=== PATIENT | female | born 1955 | race Caucasian/White ===

== ENCOUNTER 2024-03-18 13:04 | Outpatient (AMB) | payer OTHER, MEDICAID, SELFPAY ==
[2024-03-18 13:16] VITALS: BP 134/85; PULSE 69; RESP 18; TEMP 36.4; O2SAT 98; BMI 33.3
--- NOTE | 2024-03-18 13:16 | PD.ORTHCLVIS ---
Vital signs 03/18/24 13:16 Height 1.55 m Height Method Stated Weight 79.946 kg Weight Measurement Method Standing Scale BMI 33.3 BP 134/85 H Blood Pressure Source Automatic Cuff Blood Pressure Location Right Upper Arm Position Sitting Respiration 18 Pulse 69 Pulse Source Monitor Temp 97.5 F Temp Source Temporal Artery Scan Pulse Oximetry (%) 98 Oxygen Delivery Method Room Air Med/Allergies Allergies & Medications Allergies No Known Allergies Allergy (Verified 03/18/24 13:20) Medication Reconciliation Unobtainable 02/27/23 [History Confirmed 03/18/24] Subjective Visit Visit for: follow up visit Immunization / Flu Flu Vaccine in the Last 12 Months: No Flu Vaccine Exclusion Criteria: No Exclusion Criteria History of Present Illness Chief complaint: 3 MONTH F/U ON INJECTION Patient is a pleasant 60-year-old female with a longstanding history of left knee pain. She also had a right total knee replacement complicated by stiffness. It actually improved with the back surgery. Her left knee pain is miserable adn she has failed conservative treatment. She has had multiple injections, andiinflammatories, and physical therapy. Personal History Occupation: RETIRED Red flag PMH: none Pain Pain level (0-10): 0 Pain duration: CONSTANT Pain location: other (specify) (LEFT KNEE ) Pain quality: sharp and aching Pain timing: increases with activity and stairs Associated signs & symptoms: none Ambulatory data Ambulatory device: cane Treatments Improvement with previous injections: No Number of Physical Therapy sessions: 6 Improvement with PT: No Improvement with NSAIDS: n/a Review of Systems Review of Systems: All systems negative unless otherwise noted in HPI. Exam Exam Patient is in no acute distress and is cooperative with the examination today. Patient has a normal mood and affect. Breathing is nonlabored. In no respiratory distress. Bilateral extremities were evaluated and demonstrates sensation intact to light touch. Palpable pedal pulses are present. No significant edema is present. Right knee incision is clean dry intact Range of motion is 5 to 95 degrees left knee is tender to palpation to medially. ROM is 0-100. Knee feels stable to varus and valgus stress and AP translation MRI of her lumbar spine was reviewed by me today as well as x-rays of her hip and spine. The hips demonstrate preserved joint spaces. The spine demonstrates significant spinal stenosis at L4-5 Lerft knee demonstrates significant joint space narrowing . She has significant varus demfority and complete obliteration of the joint space. Left knee demonstrates full thickness cartilage and osteophytes Assessment and Plan Problem List (1) Stiffness of right knee: Status: Acute Plan: Patient is a 67-year-old female with stiffness of her right knee. Her right knee range of motion has significantly improved since her back surgery. She has significant left knee arthritis is affecting her quality life and happiness. She has failed conservative We will plan on doing the surgery when she is ready. (2) Lumbar stenosis: Status: Acute Advanced Care Planning Discussion Advance care planning discussed with:: patient Office Procedures GNS Level of Care Nursing/Assessment Patient Status: Established Patient Nursing Assessment/Reassesment: Medication Reconciliation, Update PMH in EMR and Vital Signs Coordination of Care: Complex Care and Chronic Disease 1-5, Education Complex Pt/Fam, Consent,records obtained, informed consent, 1 Ins Authorization, Lab and Imaging orders, Results/Orders obtained and Staff clarify orders Established Patient Charge Established Patient Point Assignment: 125 Established Patient Point Charge: EP Level 4 (120-155) Past Medical History Past Medical History Have you ever been diagnosed with any of the following: Cardiology Problems Hypertension: Yes Respiratory Problems Smoking: No Smoking Exposure: No
== END 2024-03-18 13:26 | disposition home or self-care (01) ==
LOC: HODSRG 13:04
PROVIDERS: Supervising Provider Orthopaedic Surgery Adult Reconstructive Orthopaedic Surgery; Visit Provider Orthopaedic Surgery Adult Reconstructive Orthopaedic Surgery
DX: M25.661 Stiffness of right knee, not elsewhere classified (principal); M48.061 Spinal stenosis, lumbar region without neurogenic claudication; I10 Essential (primary) hypertension
CPT/HCPCS: 99214; G0463

== ENCOUNTER 2024-04-09 05:40 | Day surgery (SDC) | payer OTHER, MEDICAID, SELFPAY ==
[2024-04-08 07:22] VITALS: BMI 32.5
[2024-04-08 09:01] LABS: Alanine Aminotransferase 13 U/L (10-49); Albumin, Serum 4.7 gm/dL (3.4-4.8); Alkaline Phosphatase 113 U/L (46-116); Anion Gap 9 (7-16); Aspartate Amino Transferase 15 U/L (0-34); BUN/Creatinine Ratio 30 Ratio (12-20); Bilirubin,Total 0.4 mg/dL (0.3-1.2); Blood Urea Nitrogen 21 mg/dL (9-23); Calcium 9.8 mg/dL (8.3-10.6); Calcium (Corrected) 9.8 mg/dL (8.5-10.1); Carbon Dioxide 28.5 mMol/L (20.0-31.0); Chloride 105 mMol/L (98-107); Creatinine (Component) 0.7 mg/dL (0.6-1.3); Estimated Creatinine Clearance 72.4 mL/min (>60); Globulin 2.4 gm/dL (2.3-3.5); Glucose 105 mg/dL (74-106); Osmolality,Calculated 286 (275-295); Potassium 3.8 mMol/L (3.4-5.1); Sodium 142 mMol/L (136-145); Total Protein 7.1 gm/dL (5.7-8.2); eGFR > 60 See Note
[2024-04-08 09:05] LABS: Basophils # (Auto) 0.1 Thou/mm3 (0.0-0.2); Basophils % (Auto) 1 % (0-2.5); Eosinophils # (Auto) 0.3 Thou/mm3 (0.0-0.5); Eosinophils % (Auto) 3 % (0-10); Hematocrit 37.6 % (36.0-46.0); Immature Granulocytes % (Auto) 0 % (0-0); Immature Granulocytes Auto 0.02 Thou/mm3 (0.00-0.00); Lymphocytes % (Auto) 23 % (10-50); Mean Corpuscular HGB Conc 31.9 g/dl (31.0-37.0); Mean Corpuscular Hemoglobin 29.5 pg (25.0-35.0); Mean Corpuscular Volume 92 fL (80-100); Monocytes # (Auto) 0.6 Thou/mm3 (0.0-0.8); Monocytes % (Auto) 7 % (0-12); Neutrophils # (Auto) 5.8 Thou/mm3 (1.8-7.7); Neutrophils % (Auto) 66 % (37-80); Nucleated Red Blood Cell % 0 /100 WBC (0); Platelet Count 268 Thou/mm3 (140-440); RDW Standard Deviation 45.6 fL (36.4-46.3); Red Blood Count 4.07 Miln/mm3 (4.00-5.20); White Blood Count 8.8 Thou/mm3 (3.6-11.0)
[2024-04-08 09:06] LABS: Partial Thromboplastin Time 25.4 Seconds (22.0-36.0); Prothrombin Time 10.7 Seconds (9.0-12.2)
[2024-04-09] VITALS (17 sets, daily range): BP systolic 101–170; BP diastolic 43–99; PULSE 50–78; RESP 13–22; TEMP 36.1–36.7; O2SAT 93–100; BMI 33.2; BMI 13.0
[2024-04-09] MEDS: ACETAMINOPHEN 325 MG TABLET 650 MG PO (06:37)
[2024-04-09] MEDS: PREGABALIN 75 MG CAPSULE PO (06:37)
[2024-04-09] MEDS: MELOXICAM 7.5 MG TABLET PO (06:38)
[2024-04-09] MEDS: RINGERS LACTATED 1000 ML 1,000 ML 20 ML IV (06:40)
--- NOTE | 2024-04-09 09:50 | SUR.PHASEI ---
pt received from OR in recovery bay 5. pt asleep but responds to voice, breathing unlabored on 4l nc. v/s stable. pt dressing to left lower extremity cdi. report received from Dr. Hernandez and Jocy VALLADARES.
--- NOTE | 2024-04-09 09:58 | XR_ITS ---
Examination: Left knee 2 views Technique one AP lateral left knee 2 views Exam date and time: April 09, 2024 1112 hours INDICATIONS: Postop knee arthroplasty today. FINDINGS: Prominent osteopenia Total left knee arthroplasty. Satisfactory alignment No fracture IMPRESSION: Total left knee arthroplasty with satisfactory alignment
--- NOTE | 2024-04-09 10:03 | PD.SUROPNT ---
Date of Procedure 04/09/24 Pre Op Diagnosis left knee osteoarthritis Post Op Diagnosis left knee osteoarthritis Procedure left total knee replacement Findings full thickness cartilage loss and osteophytes Procedure Description Indication: The patient is a 69 year old who has a long history of left knee pain. X-rays show degenerative arthritis involving the knee. Over the past several years the patient has had increasing pain, progressive limitation in function. He has failed conservative measures including activity modification, physical therapy, injections, anti-inflammatories, and assistive devices. After a lengthy discussion of the risks and benefits, the patient presents now for total knee replacement. The nature and purpose of the total knee replacement, alternative method(s) of treatment, the material risks involved, and the possibility of complications were fully explained to the patient. The patient was told the most common risks and complications associated with a total knee replacement include, but are not limited to blood clots in the leg, fatal pulmonary embolism, dislocation of the prosthesis, intraoperative and postoperative fractures of the femur or tibia, infection, failure of the prosthesis or grafting materials, complications from anesthesia, reactions to blood transfusions, postoperative leg length inequality, instability of the knee replacement, nerve damage or injury, vascular injury, delayed wound healing, infections, other injury or even . In addition, there are risks associated with anesthesia given during this operation, temporary or permanent numbness on the skin lateral to the incision can be a complication unique to total knee surgery, and kneeling can be painful after knee replacement surgery. Also, the patient was told that after undergoing a total knee replacement there may still be pain or disability. We discussed with the patient that we will be using a robot-assisted technology. We discussed that there is a possibility of converting to manual instrumentation. The patient was informed that the success of this operation in part depends upon the mechanical devices which are going to be implanted and that these devices can fail or malfunction, and may need to be repaired or replaced and there are no guarantees as to the longevity of this device or its part and that it or its parts could fail prematurely. Finally, the patient was asked to follow completely and fully with all advice and recommended treatments, and that recovery and ultimate outcome are affected by their compliance with recommended treatment. Surgical technique: Patient was marked and consented in the pre-operative area. The patient was brought to the operating room and placed on the operating table in a supine position. Prior to positioning, a timeout procedure was performed between the surgeon, the anesthesiologist, and the nursing staff where the patient and the operative side were identified and confirmed. After adequate general anesthetic was obtained, the left lower extremity was prepped and draped in the usual sterile fashion. A weight based dose of Cefazolin were administered within 1 hour prior to incision. The robot was preregistered and calirated before the incision. The extremity was exsanguinated with an esmarch badge and tourniquet inflated to 250mmHg. A midline incision was made. A median parapatellar arthrotomy was made. The patella was subluxed laterally. A medial release was performed to expose the medial tibia. His femoral and tibial pins were placed through an intra incisional manner for both cases. Every effort was made to ensure that the distalmost aspect of the pin was hung in the second cortex. The arrays were then tightened several times to ensure that it was fixed for the remainder of the case. Both femoral and tibial checkpoints were then placed. We then went through the registration process of the bone. We then assessed the knee deformity and attempted to correct it. We also used the robot to aid in judging laxity in both extension and flexion. Final based on laxity and alignment we changed the preoperative assessment to obtain proper proper implant positioning and to correct deformity. Attention was then placed to the tibia. We made a tibial cut using the robot ensuring that both the MCL and the patella tendon were protected with retractors. We then went to the femur and made the posterior cut followed by the anterior cut and the anterior chamfer. The bone was then removed and we made a distal femur cut and a posterior chamfer cut. We verified all cuts. A trial reduction was performed with a size 1 femoral component and a size 1 keeled tibial component. The patella tracked centrally, and no lateral retinacular release was necessary. The trial implants were removed. The arrays, pins, and checkpoints were all removed. We performed a verification that all pins were removed. The cut bone surfaces were lavaged. A size 1 left femoral component, a size 1 keeled tibial component were impacted into position. The knee was felt to be well balanced in the sagittal and coronal plane. The final 1x10 mm cruciate-substituting articular insert was impacted into the tibial tray. The knee was brought out to full extension, flexed up to 120 degrees. It was stable to varus and valgus stress and appropriately balanced in flexion and extension. The wounds were copiously irrigated following deflation of tourniquet. The medial retinaculum was reapproximated with #1 vicryl and quill. The subcutaneous tissues were closed with 0 and 2-0 interrupted Vicryl. The skin was closed with 3-0 Monofilament V loc suture. A sterile dressing was applied. The patient was transferred to a bed and brought to recovery in stable condition. The patient tolerated the procedure well. There were no intraoperative complications. Sponge and needle counts were correct times 2. As the attending surgeon, Nestor morejon I was present and performed the entire operation. Grafts/Implants Size 1 CR Femur Size 1 Tibia 10mm poly CS Implants GTRAN Pathology / specimen None Pathology comment: none Estimated Blood Loss 150 Disposition same day Surgeon Rio Marino MD Surgical Staff Operation Date: 04/09/24 07:30 Case Staff Anesthesiologist: Vitaliy Hernandez RNmortgage loan officer originator: Luz Conway
--- NOTE | 2024-04-09 11:57 | SUR.PHASEII ---
1157: Received report from Chan VALLADARES, pt. AAOx4, vitals stable, breathing unlabored, no complaint of pain or nausea, dressing to left leg CDI, no active bleed noted, palpable dorsalis pedis pulses bilaterally strong and regular, cap refill to bilateral feet less than 3 seconds.
--- NOTE | 2024-04-09 12:27 | SUR.PHASEII ---
1227: Report given to Chan VALLADARES to resume care of pt. Pt. AAOx4, dressing to left knee CDI, pt. sitting at bedside with physical therapy getting ready to walk with assist.
--- NOTE | 2024-04-09 12:32 | SUR.PHASEII ---
pt able to tolerate jello without difficulty swallowing or nausea/vomiting.
--- NOTE | 2024-04-09 15:50 | SUR.PHASEII ---
pt awake and alert, breathing unlabored on room air. v/s stable. pt dressing to left lower extremity cdi. pt cleared by physical therapist Paulina. pt able to ambulate to wheelchair with steady gait. d/c instructions given with ana Dyson in room, all questions answered. pt d/c via wheelchair with all belongings.
--- NOTE | 2024-04-11 18:31 | PD.ANESPROG ---
Documentation for date of: 04/11/24 POST ANESTHESIA NOTE: Patient had GETA and L adductor canal block for L TKA on 04/09/24. I just called her number for follow up but no answer. Vitaliy Hernandez MD Anesthesia Progress Note Progress Note Most recent Vital Signs: Last Vital Signs Temp 97.2 F 04/09/24 15:30 Pulse 73 04/09/24 15:30 Resp 20 04/09/24 15:30 BP 135/61 H 04/09/24 15:30 Pulse Ox 100 04/09/24 15:30 O2 Flow Rate 2 04/09/24 13:30
== END 2024-04-09 15:50 | disposition home health service (06) ==
PROVIDERS: Anesthesiology; PCP Family Medicine; Referring Provider Orthopaedic Surgery Adult Reconstructive Orthopaedic Surgery; Visit Provider Orthopaedic Surgery Adult Reconstructive Orthopaedic Surgery
PROC: (CPT 27447; principal; 2024-04-09 07:30)
DX: M17.12 Unilateral primary osteoarthritis, left knee (principal); M25.762 Osteophyte, left knee
CPT/HCPCS: 27447; 20985; 36415; 73560; 80053; 85025; 85610; 85730; 97162; A4217; C1713; C1776; J0171; J0690; J1100; J1885; J2250; J2371; J2405; J2704; J2710; J2795; J3010; J3490; J7030; J7120; P9045; A4648; A4649; A9270; J1596; J1805

== ENCOUNTER 2024-04-25 13:44 | Outpatient (AMB) | payer OTHER, MEDICAID, SELFPAY ==
[2024-04-25 14:01] VITALS: BP 145/77; PULSE 68; RESP 18; TEMP 36.1; O2SAT 97; BMI 33.6
--- NOTE | 2024-04-25 14:01 | RHCORTHONT_ITS ---
Vital signs 04/25/24 14:01 Height 1.55 m Height Method Stated Weight 80.796 kg Weight Measurement Method Standing Scale BMI 33.6 BP 145/77 H Blood Pressure Source Automatic Cuff Blood Pressure Location Right Upper Arm Position Sitting Respiration 18 Pulse 68 Pulse Source Monitor Temp 96.9 F Temp Source Temporal Artery Scan Pulse Oximetry (%) 97 Oxygen Delivery Method Room Air Med/Allergies Allergies & Medications Allergies No Known Allergies Allergy (Verified 04/08/24 07:20) Exam Exam Patient is in no acute distress and is cooperative with the examination today. Patient has a normal mood and affect. Breathing is nonlabored. In no respiratory distress. Bilateral extremities were evaluated and demonstrates sensation intact to light touch. Palpable pedal pulses are present. No significant edema is present. Left knee incision is clean dry and intact Assessment and Plan Problem List (1) Stiffness of right knee: Status: Acute Plan: Patient is a 67-year-old female with stiffness of her right knee. Her right knee range of motion has significantly improved since her back surgery. She has significant left knee arthritis is affecting her quality life and happiness. She is doing well status post left total knee replacement. She should continue with physical therapy (2) Lumbar stenosis: Status: Acute Advanced Care Planning Discussion Advance care planning discussed with:: patient Office Procedures GNS Level of Care Nursing/Assessment Patient Status: Established Patient Nursing Assessment/Reassesment: Medication Reconciliation, Update PMH in EMR and Vital Signs Coordination of Care: Complex Care and Chronic Disease 1-5, Education Complex Pt/Fam, Consent,records obtained, informed consent, Results/Orders obtained and Staff clarify orders Established Patient Charge Established Patient Point Assignment: 95 Established Patient Point Charge: EP Level 3 (80-115) MA Intake Visit Data Collection New Patient or Established: Established Patient (seen at [facility] within 3 years) Reason for Visit:: FOLLOW UP Seen by Clinical Staff ONLY (RN/MA): No Ct Technician Required: No PCP or OBGYN visit in last 3 months: Yes Hx Now: No Do You Feel Safe at Home: Yes Authorities Contacted: N/A Questionairres Past Medical History Past Medical History Have you ever been diagnosed with any of the following: Neurological Problems Seizures: No Cardiology Problems Hypercholesterolemia: Yes Congestive Heart Failure: No Hypertension: Yes Respiratory Problems Chronic Obstructive Pulmonary Disease (COPD): No Smoking: No Smoking Exposure: No Stomache/Intestinal Problems Hepatitis: No Genital/Urinary Problems Renal Disease: No Reproductive Problems Previous Pregnancies: Yes (x2) Musculoskeletal Problems Arthritis: Yes Fractures: Yes (left wrist and left 5th finger) Endocrine Problems Diabetes Mellitus Type 1: No Diabetes Mellitus Type 2: No Blood Problems Anemia: Yes (in the past) Other Problems Hospitalization: No Falls: No Blood Transfusions: No Blood Transfusion Reaction: No Anesthesia Reactions: No Chicken Pox: Yes Cancer: No Surgical History Hysterectomy: Yes Subjective Visit Visit for: follow up visit Immunization / Flu Flu Vaccine in the Last 12 Months: No Flu Vaccine Exclusion Criteria: No Exclusion Criteria History of Present Illness Chief complaint: Left total knee replacement Susan is postop status post left total knee replacement. She is doing well. He is working with therapy at home Pain Pain level (0-10): 1 Pain duration: ON AND OFF Pain location: inside (medial) Pain quality: aching and other (specify) ([place]ROBBING) Associated signs & symptoms: none Ambulatory data Ambulatory device: walker Treatments Improvement with previous injections: No Improvement with PT: No Improvement with NSAIDS: no Review of Systems Review of Systems: All systems negative unless otherwise noted in HPI.
== END 2024-04-25 14:22 | disposition home or self-care (01) ==
LOC: HODSRG 13:44
PROVIDERS: Supervising Provider Orthopaedic Surgery Adult Reconstructive Orthopaedic Surgery; Visit Provider Orthopaedic Surgery Adult Reconstructive Orthopaedic Surgery
DX: M25.661 Stiffness of right knee, not elsewhere classified (principal); M17.12 Unilateral primary osteoarthritis, left knee; Z96.652 Presence of left artificial knee joint; M48.061 Spinal stenosis, lumbar region without neurogenic claudication; I10 Essential (primary) hypertension; E78.00 Pure hypercholesterolemia, unspecified
CPT/HCPCS: 99213; G0463

== ENCOUNTER 2024-05-23 14:21 | Outpatient (AMB) | payer OTHER, MEDICAID, SELFPAY ==
[2024-05-23 14:42] VITALS: BP 142/77; PULSE 66; RESP 18; TEMP 36.3; O2SAT 95; BMI 33.1
--- NOTE | 2024-05-23 14:42 | ORTHONT_ITS ---
Vital signs 05/23/24 14:42 Height 1.55 m Height Method Stated Weight 79.605 kg Weight Measurement Method Standing Scale BMI 33.1 BP 142/77 H Blood Pressure Source Automatic Cuff Blood Pressure Location Right Upper Arm Position Sitting Respiration 18 Pulse 66 Pulse Source Monitor Temp 97.4 F Temp Source Temporal Artery Scan Pulse Oximetry (%) 95 Oxygen Delivery Method Room Air Med/Allergies Allergies & Medications Allergies No Known Allergies Allergy (Verified 05/23/24 14:44) Medication Reconciliation losartan 100 mg tablet 100 mg PO QDAY 04/08/24 [History Confirmed 05/23/24] rosuvastatin 10 mg tablet 10 mg PO HS 04/08/24 [History Confirmed 05/23/24] acetaminophen 500 mg tablet (Acetaminophen Extra Strength) 1,000 mg (2 x 500 mg) PO Q6H PRN pain #90 tabs 04/09/24 [Rx Confirmed 05/23/24] aspirin 81 mg tablet,delayed release 81 mg PO BID #60 tabs 04/09/24 [Rx Confirmed 05/23/24] doxycycline hyclate 100 mg tablet 100 mg PO BID #14 tabs 04/09/24 [Rx Confirmed 05/23/24] gabapentin 300 mg capsule 300 mg PO .qhs #30 caps 04/09/24 [Rx Confirmed 05/23/24] oxycodone 5 mg tablet 5 mg PO Q6H PRN pain #28 tabs 04/09/24 [Rx Confirmed 05/23/24] sennosides 8.6 mg-docusate sodium 50 mg tablet (Senna-S) 1 tab-cap PO QDAY #30 tabs 04/09/24 [Rx Confirmed 05/23/24] Exam Exam Patient is in no acute distress and is cooperative with the examination today. Patient has a normal mood and affect. Breathing is nonlabored. In no respiratory distress. Bilateral extremities were evaluated and demonstrates sensation intact to light touch. Palpable pedal pulses are present. No significant edema is present. Left knee incision is clean dry and intact Assessment and Plan Problem List (1) Stiffness of right knee: Status: Acute Plan: Patient is a 67-year-old female with stiffness of her right knee. Her right knee range of motion has significantly improved since her back surgery. She has significant left knee arthritis is affecting her quality life and happiness. She is doing well status post left total knee replacement. She should continue with physical therapy (2) Lumbar stenosis: Status: Acute Advanced Care Planning Discussion Advance care planning discussed with:: patient Office Procedures GNS Level of Care Nursing/Assessment Patient Status: Established Patient Nursing Assessment/Reassesment: Medication Reconciliation, Update PMH in EMR and Vital Signs Coordination of Care: Complex Care and Chronic Disease 1-5, Education Complex Pt/Fam, Consent,records obtained, informed consent, Results/Orders obtained and Staff clarify orders Established Patient Charge Established Patient Point Assignment: 95 Established Patient Point Charge: EP Level 3 (80-115) MA Intake Visit Data Collection New Patient or Established: Established Patient (seen at [facility] within 3 years) Reason for Visit:: 6 WEEK POST OP Seen by Clinical Staff ONLY (RN/MA): No Verbal consent obtained for Telemed visit?: No Explosive Ordnance Disposal Manager Required: No PCP or OBGYN visit in last 3 months: Yes Hx Now: No Do You Feel Safe at Home: Yes Authorities Contacted: N/A Questionairres Past Medical History Past Medical History Have you ever been diagnosed with any of the following: Neurological Problems Seizures: No Cardiology Problems Hypercholesterolemia: Yes Congestive Heart Failure: No Hypertension: Yes Respiratory Problems Chronic Obstructive Pulmonary Disease (COPD): No Smoking: No Smoking Exposure: No Stomache/Intestinal Problems Hepatitis: No Genital/Urinary Problems Renal Disease: No Reproductive Problems Previous Pregnancies: Yes (x2) Musculoskeletal Problems Arthritis: Yes Fractures: Yes (left wrist and left 5th finger) Endocrine Problems Diabetes Mellitus Type 1: No Diabetes Mellitus Type 2: No Blood Problems Anemia: Yes (in the past) Other Problems Hospitalization: No Falls: No Blood Transfusions: No Blood Transfusion Reaction: No Anesthesia Reactions: No Chicken Pox: Yes Cancer: No Surgical History Hysterectomy: Yes Subjective Visit Visit for: post op #2 and knee Immunization / Flu Flu Vaccine in the Last 12 Months: No Flu Vaccine Exclusion Criteria: No Exclusion Criteria History of Present Illness Chief complaint: 6 WEEK POST OP F/U Susan is postop status post left total knee replacement. She is doing well. She is working with outpatient therapy. Pain Pain level (0-10): 5 Pain duration: COMES AND GOES Pain location: anterior and posterior Pain quality: sharp Pain timing: night Associated signs & symptoms: none Ambulatory data Ambulatory device: cane Treatments Improvement with previous injections: No Improvement with PT: No Improvement with NSAIDS: no Review of Systems Review of Systems: All systems negative unless otherwise noted in HPI.
== END 2024-05-23 14:58 | disposition home or self-care (01) ==
LOC: HODSRG 14:21
PROVIDERS: PCP Family Medicine; Referring Provider Family Medicine; Supervising Provider Orthopaedic Surgery Adult Reconstructive Orthopaedic Surgery; Visit Provider Orthopaedic Surgery Adult Reconstructive Orthopaedic Surgery
DX: M25.661 Stiffness of right knee, not elsewhere classified (principal); M17.12 Unilateral primary osteoarthritis, left knee; Z96.652 Presence of left artificial knee joint; M48.061 Spinal stenosis, lumbar region without neurogenic claudication; I10 Essential (primary) hypertension; E78.00 Pure hypercholesterolemia, unspecified
CPT/HCPCS: 99213; G0463

== ENCOUNTER 2024-07-22 15:08 | Outpatient (AMB) | payer OTHER, MEDICAID, SELFPAY ==
--- NOTE | 2024-07-22 15:17 | ORTHONT_ITS ---
Vital signs 07/22/24 15:18 Height 1.55 m Height Method Stated Weight 81.335 kg Weight Measurement Method Standing Scale BMI 33.8 BP 155/80 H Blood Pressure Source Automatic Cuff Blood Pressure Location Right Upper Arm Position Sitting Respiration 18 Pulse 65 Pulse Source Monitor Temp 98.9 F Temp Source Temporal Artery Scan Pulse Oximetry (%) 98 Oxygen Delivery Method Room Air Med/Allergies Allergies & Medications Allergies No Known Allergies Allergy (Verified 07/22/24 15:21) Medication Reconciliation losartan 100 mg tablet 100 mg PO QDAY 04/08/24 [History Confirmed 07/22/24] rosuvastatin 10 mg tablet 10 mg PO HS 04/08/24 [History Confirmed 07/22/24] acetaminophen 500 mg tablet (Acetaminophen Extra Strength) 1,000 mg (2 x 500 mg) PO Q6H PRN pain #90 tabs 04/09/24 [Rx Confirmed 07/22/24] aspirin 81 mg tablet,delayed release 81 mg PO BID #60 tabs 04/09/24 [Rx Confirmed 07/22/24] doxycycline hyclate 100 mg tablet 100 mg PO BID #14 tabs 04/09/24 [Rx Confirmed 07/22/24] gabapentin 300 mg capsule 300 mg PO .qhs #30 caps 04/09/24 [Rx Confirmed 07/22/24] oxycodone 5 mg tablet 5 mg PO Q6H PRN pain #28 tabs 04/09/24 [Rx Confirmed 07/22/24] sennosides 8.6 mg-docusate sodium 50 mg tablet (Senna-S) 1 tab-cap PO QDAY #30 tabs 04/09/24 [Rx Confirmed 07/22/24] Exam Exam Patient is in no acute distress and is cooperative with the examination today. Patient has a normal mood and affect. Breathing is nonlabored. In no respiratory distress. Bilateral extremities were evaluated and demonstrates sensation intact to light touch. Palpable pedal pulses are present. No significant edema is present. Left knee incision is clean dry and intact Assessment and Plan Problem List (1) Stiffness of right knee: Status: Acute Plan: Patient is a 67-year-old female with stiffness of her right knee. Her right knee range of motion has significantly improved since her back surgery. She has significant left knee arthritis is affecting her quality life and happiness. She is doing well status post left total knee replacement. She should continue with physical therapy (2) Lumbar stenosis: Status: Acute Advanced Care Planning Discussion Advance care planning discussed with:: patient Office Procedures GNS Level of Care Nursing/Assessment Patient Status: Established Patient Nursing Assessment/Reassesment: Medication Reconciliation, Update PMH in EMR and Vital Signs Coordination of Care: Complex Care and Chronic Disease 1-5, Education Complex Pt/Fam, Consent,records obtained, informed consent, Results/Orders obtained and Staff clarify orders Established Patient Charge Established Patient Point Assignment: 95 Established Patient Point Charge: EP Level 3 (80-115) MA Intake Visit Data Collection New Patient or Established: Established Patient (seen at [facility] within 3 years) Reason for Visit:: 2 MONTH POST OP Seen by Clinical Staff ONLY (RN/MA): No Verbal consent obtained for Telemed visit?: No Blacktop Paver Operator Required: No PCP or OBGYN visit in last 3 months: Yes Hx Now: No Do You Feel Safe at Home: Yes Authorities Contacted: N/A Questionairres Past Medical History Past Medical History Have you ever been diagnosed with any of the following: Neurological Problems Seizures: No Cardiology Problems Hypercholesterolemia: Yes Congestive Heart Failure: No Hypertension: Yes Respiratory Problems Chronic Obstructive Pulmonary Disease (COPD): No Smoking: No Smoking Exposure: No Stomache/Intestinal Problems Hepatitis: No Genital/Urinary Problems Renal Disease: No Reproductive Problems Previous Pregnancies: Yes (x2) Musculoskeletal Problems Arthritis: Yes Fractures: Yes (left wrist and left 5th finger) Endocrine Problems Diabetes Mellitus Type 1: No Diabetes Mellitus Type 2: No Blood Problems Anemia: Yes (in the past) Other Problems Hospitalization: No Falls: No Blood Transfusions: No Blood Transfusion Reaction: No Anesthesia Reactions: No Chicken Pox: Yes Cancer: No Surgical History Hysterectomy: Yes Subjective Visit Visit for: follow up visit and knee Immunization / Flu Flu Vaccine in the Last 12 Months: No Flu Vaccine Exclusion Criteria: No Exclusion Criteria History of Present Illness Chief complaint: 3 MONTH FOLLOW UP Week he is postop status post left total knee replacement 3 months ago. She is doing well. She reports a lot of pain in her buttocks that radiates to her groin. This is happening recently. We will get hip x-rays Personal History Occupation: UNEMPLOYED Red flag PMH: BMI BMI Counceling provided: Yes Pain Pain level (0-10): 1 Pain duration: ALL DAY Pain location: inside (medial), outside (lateral), anterior and posterior Pain quality: sharp, dull and aching Pain timing: increases with activity Ambulatory data Ambulatory device: cane Treatments Improvement with previous injections: No Improvement with PT: No Improvement with NSAIDS: no Review of Systems Review of Systems: All systems negative unless otherwise noted in HPI.
[2024-07-22 15:18] VITALS: BP 155/80; PULSE 65; RESP 18; TEMP 37.2; O2SAT 98; BMI 33.8
--- NOTE | 2024-07-22 15:22 | XR_ITS ---
Examination: Bilateral AP knees PA and lateral view left knee Lateral view left knee Axial view left knee TECHNIQUE: Standing bilateral AP knees single view PA flexion knee left single view Lateral standing left knee single view Axial left knee single view Exam date and time: June 24, 2024 1532 hours INDICATIONS: Left knee replacement 3 months ago. FINDINGS: Moderate osteopenia Bilateral total knee arthroplasties. Satisfactory alignment No patellar dislocation IMPRESSION: Bilateral total knee replacements with satisfactory alignment
--- NOTE | 2024-07-22 15:22 | XR_ITS ---
Examination:Left hip AP, lateral, AP pelvis 3 views Technique: Hip AP lateral, AP pelvis, 3 views Exam date and time:July 22, 2024 1532 hours INDICATIONS: Left hip pain several months. FINDINGS: Significant osteopenia Moderate narrowing right and left hip joints No hip or pelvic fractures IMPRESSION: Moderate narrowing hip joints.
== END 2024-07-22 15:35 | disposition home or self-care (01) ==
PROVIDERS: PCP Family Medicine; Referring Provider Family Medicine; Supervising Provider Orthopaedic Surgery Adult Reconstructive Orthopaedic Surgery; Visit Provider Orthopaedic Surgery Adult Reconstructive Orthopaedic Surgery
DX: M17.12 Unilateral primary osteoarthritis, left knee (principal); M25.661 Stiffness of right knee, not elsewhere classified; M48.061 Spinal stenosis, lumbar region without neurogenic claudication; Z96.652 Presence of left artificial knee joint; E78.00 Pure hypercholesterolemia, unspecified; I10 Essential (primary) hypertension; M25.552 Pain in left hip
CPT/HCPCS: 73502; 73564; 99213; G0463

== ENCOUNTER 2024-08-21 13:21 | Outpatient (AMB) | payer OTHER, MEDICAID, SELFPAY ==
--- NOTE | 2024-08-21 13:28 | ORTHONT_ITS ---
Vital signs 08/21/24 13:29 Height 1.55 m Weight 80.995 kg Weight Measurement Method Standing Scale BMI 33.7 BP 123/90 H Blood Pressure Source Automatic Cuff Blood Pressure Location Right Upper Arm Position Sitting Respiration 17 Pulse 59 L Pulse Source Monitor Temp 98.3 F Temp Source Temporal Artery Scan Pulse Oximetry (%) 99 Oxygen Delivery Method Room Air Med/Allergies Allergies & Medications Allergies No Known Allergies Allergy (Verified 08/21/24 13:30) Medication Reconciliation losartan 100 mg tablet 100 mg PO QDAY 04/08/24 [History Confirmed 08/21/24] rosuvastatin 10 mg tablet 10 mg PO HS 04/08/24 [History Confirmed 08/21/24] acetaminophen 500 mg tablet (Acetaminophen Extra Strength) 1,000 mg (2 x 500 mg) PO Q6H PRN pain #90 tabs 04/09/24 [Rx Confirmed 08/21/24] aspirin 81 mg tablet,delayed release 81 mg PO BID #60 tabs 04/09/24 [Rx Confirmed 08/21/24] doxycycline hyclate 100 mg tablet 100 mg PO BID #14 tabs 04/09/24 [Rx Confirmed 08/21/24] gabapentin 300 mg capsule 300 mg PO .qhs #30 caps 04/09/24 [Rx Confirmed 08/21/24] oxycodone 5 mg tablet 5 mg PO Q6H PRN pain #28 tabs 04/09/24 [Rx Confirmed 08/21/24] sennosides 8.6 mg-docusate sodium 50 mg tablet (Senna-S) 1 tab-cap PO QDAY #30 tabs 04/09/24 [Rx Confirmed 08/21/24] Exam Exam Patient is in no acute distress and is cooperative with the examination today. Patient has a normal mood and affect. Breathing is nonlabored. In no respiratory distress. Bilateral extremities were evaluated and demonstrates sensation intact to light touch. Palpable pedal pulses are present. No significant edema is present. Left knee incision is clean dry and intact Left knee xrays demonstrate a cementless total knee replacement in good alignment and position Assessment and Plan Problem List (1) Stiffness of right knee: Status: Acute Plan: Patient is a 67-year-old female with stiffness of her right knee. Her right knee range of motion has significantly improved since her back surgery. She has significant left knee arthritis is affecting her quality life and happiness. She is doing well status post left total knee replacement. She will continue with PT We willsee her in 3 months (2) Lumbar stenosis: Status: Acute Advanced Care Planning Discussion Advance care planning discussed with:: patient Office Procedures GNS Level of Care Nursing/Assessment Patient Status: Established Patient Nursing Assessment/Reassesment: Medication Reconciliation, Update PMH in EMR and Vital Signs Coordination of Care: Complex Care and Chronic Disease 1-5, Consent,records obtained, informed consent, Education Simp Pt/Fam, Results/Orders obtained and Staff clarify orders Established Patient Charge Established Patient Point Assignment: 90 Established Patient Point Charge: EP Level 3 (80-115) MA Intake Visit Data Collection New Patient or Established: Established Patient (seen at [facility] within 3 years) Reason for Visit:: FU LT HIP XRAY Seen by Clinical Staff ONLY (RN/MA): No Cobbler Upper Required: No PCP or OBGYN visit in last 3 months: Yes Hx Now: No Do You Feel Safe at Home: Yes Authorities Contacted: N/A Questionairres Past Medical History Past Medical History Have you ever been diagnosed with any of the following: Neurological Problems Seizures: No Cardiology Problems Hypercholesterolemia: Yes Congestive Heart Failure: No Hypertension: Yes Respiratory Problems Chronic Obstructive Pulmonary Disease (COPD): No Smoking: No Smoking Exposure: No Stomache/Intestinal Problems Hepatitis: No Genital/Urinary Problems Renal Disease: No Reproductive Problems Previous Pregnancies: Yes (x2) Musculoskeletal Problems Arthritis: Yes Fractures: Yes (left wrist and left 5th finger) Endocrine Problems Diabetes Mellitus Type 1: No Diabetes Mellitus Type 2: No Blood Problems Anemia: Yes (in the past) Other Problems Hospitalization: No Falls: No Blood Transfusions: No Blood Transfusion Reaction: No Anesthesia Reactions: No Chicken Pox: Yes Cancer: No Surgical History Hysterectomy: Yes Subjective Visit Visit for: follow up visit and hip (LEFT HIP) Immunization / Flu Flu Vaccine in the Last 12 Months: No Flu Vaccine Exclusion Criteria: Refused by Patient History of Present Illness Chief complaint: 3 MONTH FOLLOW UP Week he is postop status post left total knee replacement 4 months ago. She is doing well. She reports a lot of pain in her buttocks that radiates to her groin. This has been happening recently. Personal History Occupation: UNEMPLOYED Red flag PMH: none BMI Counceling provided: Yes Pain Pain level (0-10): 0 Pain duration: ALL DAY Pain location: inside (medial), outside (lateral), anterior and posterior Pain quality: sharp, dull and aching Pain timing: increases with activity Ambulatory data Ambulatory device: cane Treatments Improvement with previous injections: No Improvement with PT: No Improvement with NSAIDS: no Review of Systems Review of Systems: All systems negative unless otherwise noted in HPI.
[2024-08-21 13:29] VITALS: BP 123/90; PULSE 59; RESP 17; TEMP 36.8; O2SAT 99; BMI 33.7
== END 2024-08-21 13:42 | disposition home or self-care (01) ==
LOC: HODSRG 13:21
PROVIDERS: PCP Family Medicine; Referring Provider Family Medicine; Supervising Provider Orthopaedic Surgery Adult Reconstructive Orthopaedic Surgery; Visit Provider Orthopaedic Surgery Adult Reconstructive Orthopaedic Surgery
DX: M25.661 Stiffness of right knee, not elsewhere classified (principal); M17.12 Unilateral primary osteoarthritis, left knee; Z96.652 Presence of left artificial knee joint; M48.061 Spinal stenosis, lumbar region without neurogenic claudication; I10 Essential (primary) hypertension; E78.00 Pure hypercholesterolemia, unspecified
CPT/HCPCS: 99213; G0463

== ENCOUNTER 2025-01-29 08:59 | Outpatient (AMB) | payer OTHER, MEDICAID, SELFPAY ==
[2025-01-29 09:18] VITALS: BP 142/71; PULSE 58; RESP 18; TEMP 36.7; O2SAT 98; BMI 33.3
--- NOTE | 2025-01-29 09:18 | ORTHONT_ITS ---
Vital signs 01/29/25 09:18 Height 1.55 m Height Method Measured Weight 80.059 kg Weight Measurement Method Standing Scale BMI 33.3 BP 142/71 H Blood Pressure Source Automatic Cuff Blood Pressure Location Left Upper Arm Position Sitting Respiration 18 Pulse 58 L Pulse Source Monitor Temp 98.0 F Temp Source Temporal Artery Scan Pulse Oximetry (%) 98 Oxygen Delivery Method Room Air Med/Allergies Allergies & Medications Allergies No Known Allergies Allergy (Verified 01/29/25 09:19) Medication Reconciliation losartan 100 mg tablet 100 mg PO QDAY 04/08/24 [History Confirmed 01/29/25] rosuvastatin 10 mg tablet 10 mg PO HS 04/08/24 [History Confirmed 01/29/25] acetaminophen 500 mg tablet (Acetaminophen Extra Strength) 1,000 mg (2 x 500 mg) PO Q6H PRN pain #90 tabs 04/09/24 [Rx Confirmed 01/29/25] aspirin 81 mg tablet,delayed release 81 mg PO BID #60 tabs 04/09/24 [Rx Confirmed 01/29/25] doxycycline hyclate 100 mg tablet 100 mg PO BID #14 tabs 04/09/24 [Rx Confirmed 01/29/25] gabapentin 300 mg capsule 300 mg PO .qhs #30 caps 04/09/24 [Rx Confirmed 01/29/25] oxycodone 5 mg tablet 5 mg PO Q6H PRN pain #28 tabs 04/09/24 [Rx Confirmed 01/29/25] sennosides 8.6 mg-docusate sodium 50 mg tablet (Senna-S) 1 tab-cap PO QDAY #30 tabs 04/09/24 [Rx Confirmed 01/29/25] Exam Exam Patient is in no acute distress and is cooperative with the examination today. Patient has a normal mood and affect. Breathing is nonlabored. In no respiratory distress. Bilateral extremities were evaluated and demonstrates sensation intact to light touch. Palpable pedal pulses are present. No significant edema is present. Left knee incision is clean dry and intact Left knee xrays demonstrate a cementless total knee replacement in good alig nment and position. Right knee demonstrates a cemented total knee replacement with radiolucent lines. Assessment and Plan Problem List (1) Stiffness of right knee: Status: Acute Plan: 1. Bilateral knee pain: The bilateral knee pain is likely due to a combination of factors, including arthritis and potential infection. Both knees are swollen, and there is a previous knee surgery on the right side. The patient reports significant sorenes s and occasional buckling when walking. Laboratory tests will be conducted to rule out any infection, and an x-ray of the knees will be performed today. Lab values will be obtained to rule out infection. An x-ray of both knees will be performed during today's visit. The patient is advised to monitor for any signs of worsening pain or swelling and to report these symptoms promptly. Discussed the importance of maintaining a healthy weight and engaging in low- impact exercises to reduce stress on the knees. Pain management options, including [id number] pain relievers and physical therapy, were reviewed. The patient was informed about the potential need for further interventions based on the results of the lab tests and x-ray. 2. Back pain: The back pain is contributing to the overall discomfort and may be related to the knee pain. The patient reports difficulty sleeping and pain radiating from the back to the legs, with associated numbness and tingling in both legs and toes. An MRI has been scheduled to investigate the cause of the back pain. An MRI will be performed to further evaluate the cause of the back pain. The patient is advised to avoid activities that exacerbate the pain and to use supportive measures such as heat or cold therapy. Discussed the potential benefits of physical therapy to strengthen the back muscles and improve posture. The patient was educated on the importance of proper body mechanics and ergonomics to prevent further strain on the back. Pain management strategies, including the use of [id number] pain relievers, were reviewed. The patient is encouraged to follow up with Dr. Reaves and Dr. Marino as scheduled for further evaluation and management. (2) Lumbar stenosis: Status: Acute Advanced Care Planning Discussion Advance care planning discussed with:: patient Office Procedures GNS Level of Care Nursing/Assessment Patient Status: Established Patient Nursing Assessment/Reassesment: Medication Reconciliation, Update PMH in EMR and Vital Signs Coordination of Care: Complex Care and Chronic Disease 1-5, Education Complex Pt/Fam, Consent,records obtained, informed consent, Lab and Imaging orders, Results/Orders obtained and Staff clarify orders Established Patient Charge Established Patient Point Assignment: 110 Established Patient Point Charge: EP Level 3 (80-115) SD Intake Visit Data Collection New Patient or Established: Established Patient (seen at [facility] within 3 years) Reason for Visit:: LEFT KNEE PAIN Seen by Clinical Staff ONLY (RN/MA): No Care Information Associate Required: No PCP or OBGYN visit in last 3 months: Yes Hx Now: No Do You Feel Safe at Home: Yes Authorities Contacted: N/A Questionairres Past Medical History Past Medical History Have you ever been diagnosed with any of the following: Neurological Problems Seizures: No Cardiology Problems Hypercholesterolemia: Yes Congestive Heart Failure: No Hypertension: Yes Respiratory Problems Chronic Obstructive Pulmonary Disease (COPD): No Smoking: No Smoking Exposure: No Stomache/Intestinal Problems Hepatitis: No Genital/Urinary Problems Renal Disease: No Reproductive Problems Previous Pregnancies: Yes (x2) Musculoskeletal Problems Arthritis: Yes Fractures: Yes (left wrist and left 5th finger) Endocrine Problems Diabetes Mellitus Type 1: No Diabetes Mellitus Type 2: No Blood Problems Anemia: Yes (in the past) Other Problems Hospitalization: No Falls: No Blood Transfusions: No Blood Transfusion Reaction: No Anesthesia Reactions: No Chicken Pox: Yes Cancer: No Surgical History Hysterectomy: Yes Subjective Visit Visit for: follow up visit and knee Immunization / Flu Flu Vaccine in the Last 12 Months: No Flu Vaccine Exclusion Criteria: Refused by Patient History of Present Illness Chief complaint: 3 MONTH FOLLOW UP Patient is postop status post left total knee replacement 4 months ago. She is doing well. She reports a lot of pain in her buttocks that radiates to her groin. This has been happening recently. She has pain in both knees and in the back. There is numbness and tingling as well She reports experiencing pain in both knees, with the left knee being more problematic. The pain is described as severe and occasionally feels like it might give way during walking. Swelling is noted in the left knee, which was previously operated on by Dr. Felder. Despite undergoing exercises post-surgery, she still experiences tightness in the knee. Numbness and tingling are present in both legs and toes. She has an upcoming appointment with Dr. Marino on . She has a history of severe arthritis. She had an appointment with Dr. Reaves on Sunday, where she reported back pain and difficulty sleeping. An MRI has been scheduled to investigate these issues further. Personal History Occupation: UNEMPLOYED Red flag PMH: none BMI Counceling provided: Yes Pain Pain level (0-10): 0 Pain duration: ALL DAY Pain location: inside (medial), outside (lateral), anterior and posterior Pain quality: sharp, dull and aching Pain timing: increases with activity Ambulatory data Ambulatory device: cane Treatments Improvement with previous injections: No Improvement with PT: No Improvement with NSAIDS: no Review of Systems Review of Systems: All systems negative unless otherwise noted in HPI.
--- NOTE | 2025-01-29 09:21 | XR_ITS ---
Examination: Bilateral knees 2 views Right lateral knee left lateral knee 2 views Right axial knee left axial knee 2 views TECHNIQUE: Bilateral AP knees standing single view, bilateral PA knees standing single view flexion Standing right lateral knee left lateral knee 2 views Right axial knee left axial knee 2 views total 6 views Date and time: January 29, 2025, 0934 hours INDICATIONS: Right knee pain one year right knee surgery 2020, left knee pain one month, left knee surgery April 09, 2024 FINDINGS: Moderate osteopenia. Bilateral total knee arthroplasties Satisfactory alignment Stable alignment compared with July 22, 2024 No fractures No patellar dislocations IMPRESSION: Bilateral total knee arthroplasties with stable and satisfactory alignment
== END 2025-01-29 09:32 | disposition home or self-care (01) ==
PROVIDERS: PCP Family Medicine; Referring Provider Family Medicine; Supervising Provider Orthopaedic Surgery Adult Reconstructive Orthopaedic Surgery; Visit Provider Orthopaedic Surgery Adult Reconstructive Orthopaedic Surgery
DX: M25.661 Stiffness of right knee, not elsewhere classified (principal); M25.562 Pain in left knee; M25.561 Pain in right knee; M48.061 Spinal stenosis, lumbar region without neurogenic claudication; Z96.652 Presence of left artificial knee joint; I10 Essential (primary) hypertension; E78.00 Pure hypercholesterolemia, unspecified
CPT/HCPCS: 73564; 99213; G0463

== ENCOUNTER 2025-03-03 10:14 | Outpatient (AMB) | payer OTHER, MEDICAID, SELFPAY ==
[2025-03-03 10:31] VITALS: BP 126/72; PULSE 62; RESP 18; TEMP 36.4; O2SAT 99; BMI 33.8
--- NOTE | 2025-03-03 10:31 | PD.ORTHCLVIS ---
Vital signs 03/03/25 10:31 Height 1.55 m Height Method Measured Weight 81.25 kg Weight Measurement Method Standing Scale BMI 33.8 BP 126/72 Blood Pressure Source Automatic Cuff Blood Pressure Location Left Upper Arm Position Sitting Respiration 18 Pulse 62 Pulse Source Monitor Temp 97.5 F Temp Source Temporal Artery Scan Pulse Oximetry (%) 99 Oxygen Delivery Method Room Air Med/Allergies Allergies & Medications Allergies No Known Allergies Allergy (Verified 03/03/25 10:32) Medication Reconciliation losartan 100 mg tablet 100 mg PO QDAY 04/08/24 [History Confirmed 03/03/25] rosuvastatin 10 mg tablet 10 mg PO HS 04/08/24 [History Confirmed 03/03/25] acetaminophen 500 mg tablet (Acetaminophen Extra Strength) 1,000 mg (2 x 500 mg) PO Q6H PRN pain #90 tabs 04/09/24 [Rx Confirmed 03/03/25] aspirin 81 mg tablet,delayed release 81 mg PO BID #60 tabs 04/09/24 [Rx Confirmed 03/03/25] doxycycline hyclate 100 mg tablet 100 mg PO BID #14 tabs 04/09/24 [Rx Confirmed 03/03/25] gabapentin 300 mg capsule 300 mg PO .qhs #30 caps 04/09/24 [Rx Confirmed 03/03/25] oxycodone 5 mg tablet 5 mg PO Q6H PRN pain #28 tabs 04/09/24 [Rx Confirmed 03/03/25] sennosides 8.6 mg-docusate sodium 50 mg tablet (Senna-S) 1 tab-cap PO QDAY #30 tabs 04/09/24 [Rx Confirmed 03/03/25] Exam Exam Patient is in no acute distress and is cooperative with the examination today. Patient has a normal mood and affect. Breathing is nonlabored. In no respiratory distress. Bilateral extremities were evaluated and demonstrates sensation intact to light touch. Palpable pedal pulses are present. No significant edema is present. Left knee incision is clean dry and intact Left knee xrays demonstrate a cementless total knee replacement in good alignment and position. Right knee demonstrates a cemented total knee replacement with radiolucent lines. Assessment and Plan Problem List (1) Stiffness of right knee: Status: Acute Plan: 1. Bilateral knee pain: The bilateral knee pain is likely due to a combination of factors, including arthritis and potential infection. Both knees are swollen, and there is a previous knee surgery on the right side. The patient reports significant soreness and occasional buckling when walking. Laboratory tests will be conducted to rule out any infection, We cannot find her labs. We will call her back when we get the results. (2) Lumbar stenosis: Status: Acute Advanced Care Planning Discussion Advance care planning discussed with:: patient Office Procedures GNS Level of Care Nursing/Assessment Patient Status: Established Patient Nursing Assessment/Reassesment: Medication Reconciliation, Update PMH in EMR and Vital Signs Coordination of Care: Complex Care and Chronic Disease 1-5, Education Complex Pt/Fam, Consent,records obtained, informed consent, Results/Orders obtained and Staff clarify orders Established Patient Charge Established Patient Point Assignment: 95 Established Patient Point Charge: EP Level 3 (80-115) MA Intake Visit Data Collection New Patient or Established: Established Patient (seen at [facility] within 3 years) Reason for Visit:: F/U XRAY RESULTS Seen by Clinical Staff ONLY (RN/MA): No Erecting Engineer Required: No PCP or OBGYN visit in last 3 months: Yes Hx Now: No Do You Feel Safe at Home: Yes Authorities Contacted: N/A Questionairres Past Medical History Past Medical History Have you ever been diagnosed with any of the following: Neurological Problems Seizures: No Cardiology Problems Hypercholesterolemia: Yes Congestive Heart Failure: No Hypertension: Yes Respiratory Problems Chronic Obstructive Pulmonary Disease (COPD): No Smoking: No Smoking Exposure: No Stomache/Intestinal Problems Hepatitis: No Genital/Urinary Problems Renal Disease: No Reproductive Problems Previous Pregnancies: Yes (x2) Musculoskeletal Problems Arthritis: Yes Fractures: Yes (left wrist and left 5th finger) Endocrine Problems Diabetes Mellitus Type 1: No Diabetes Mellitus Type 2: No Blood Problems Anemia: Yes (in the past) Other Problems Hospitalization: No Falls: No Blood Transfusions: No Blood Transfusion Reaction: No Anesthesia Reactions: No Chicken Pox: Yes Cancer: No Surgical History Hysterectomy: Yes Subjective Visit Visit for: follow up visit and knee Immunization / Flu Flu Vaccine in the Last 12 Months: No Flu Vaccine Exclusion Criteria: Refused by Patient History of Present Illness Chief complaint: F/U XRAY RESULTS Patient is postop 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 She is doing well. She reports a lot of pain in her buttocks that radiates to her groin. This has been happening recently. She has pain in both knees and in the back. There is numbness and tingling as well She reports experiencing pain in both knees, with the left knee being more problematic. The pain is described as severe and occasionally feels like it might give way during walking. Swelling is noted in the left knee, which was previously operated on by Dr. Felder. Despite undergoing exercises post-surgery, she still experiences tightness in the knee. Numbness and tingling are present in both legs and toes. She is getting an MRI of her back Personal History Occupation: UNEMPLOYED Red flag PMH: none BMI Counceling provided: Yes Pain Pain level (0-10): 0 Pain duration: ALL DAY Pain location: inside (medial), outside (lateral), anterior and posterior Pain quality: sharp, dull and aching Pain timing: increases with activity Ambulatory data Ambulatory device: cane Treatments Improvement with previous injections: No Improvement with PT: No Improvement with NSAIDS: no Review of Systems Review of Systems: All systems negative unless otherwise noted in HPI.
== END 2025-03-03 10:47 | disposition home or self-care (01) ==
LOC: HODSRG 10:14
PROVIDERS: PCP Family Medicine; Referring Provider Family Medicine; Supervising Provider Orthopaedic Surgery Adult Reconstructive Orthopaedic Surgery; Visit Provider Orthopaedic Surgery Adult Reconstructive Orthopaedic Surgery
DX: Z47.1 Aftercare following joint replacement surgery (principal); Z96.652 Presence of left artificial knee joint; M25.562 Pain in left knee; M25.561 Pain in right knee; M48.061 Spinal stenosis, lumbar region without neurogenic claudication; I10 Essential (primary) hypertension
CPT/HCPCS: 99213; G0463